=== PATIENT | female | born 1935 | race Hispanic/Latino ===

== ENCOUNTER 2021-10-13 16:29 | Inpatient (IN) | payer MEDICARE, OTHER ==
[2021-10-13] MEDS ORDERED: HYDROmorphone 0.5 MG/0.5 ML INJ IV PRN (16:46)
[2021-10-13] MEDS ORDERED: ACETAMINOPHEN 325 MG TAB PO PRN (16:46)
[2021-10-13] MEDS ORDERED: ALBUTEROL 2.5 MG/3 ML NEBU IH PRN (16:46)
[2021-10-13] MEDS ORDERED: ONDANSETRON 4 MG/2 ML INJ IV PRN (16:46)
[2021-10-13] MEDS ORDERED: HALOPERIDOL 5 MG TAB PO PRN (16:49)
[2021-10-13] MEDS ORDERED: diphenhydrAMINE 50 MG CAP PO PRN (16:49)
--- NOTE | 2021-10-13 16:50 | History and Physical Report ---
History of Present Illness Chief complaint: She is confused and she is falling down History of present illness: 85 YO Female with [place], HTN, DM, OA, Vascular Dementia, Cerebral Atherosclerosis admitted directly at the request of Dr. Calabrese. Patient is confused with diminished cognition is unable to provide detailed history. Patient history provided by daughter who was at patient bedside during exam and interview. As per patient daughter the patient experienced increased weakness confusion over the past 1 month with worsening symptoms over the same timeframe as well as recurrent syncopal episodes. Patient was seen and evaluated by her primary care physician today and was found to have a blood pressure of 187/125 mmHg complicated by confusion which is consistent with hypertensive urgency complicated by hypertensive encephalopathy. EMS was notified and upon arrival the patient was found to be in distress and subsequently transported to [facility] for further care and evaluation of the aforementioned symptoms. The patient was seen and evaluated upon arrival to her room. The patient was admitted to telemetry and treated with antihypertensive therapy due to increased risk of worsening symptoms and for medical stabilization. Patient has diminished cognition but has a positive gag reflex and is able to protect her airway at the time my evaluation. No reports of fever, chills, chest pain, palpitation productive cough, skin rash, recent contact, known exposure to COVID-19. No prior admission for review. All medication listed at time of admission has been reconciled. Past History Past Medical History: acute [place], diabetes, hypertension, other (See HPI) Past Surgical History: cholecystectomy, Other (Back surgery) Social history: . denies: smoking, alcohol abuse Family history: hypertension Medications and Allergies Allergies Allergy/AdvReac Type Severity Reaction Status Date / Time codeine Allergy Unknown Verified 10/13/21 17:38 Sulfa (Sulfonamide Allergy Unknown Verified 10/13/21 17:38 Antibiotics) Home Medications Medication Instructions Recorded Confirmed Last Taken Type Amoxicillin [Trimox] 500 mg PO BID 01/01/14 10/13/21 01/01/14 History Cetirizine HCl [Zyrtec] 10 mg PO DAILY 01/01/14 10/13/21 01/01/14 History Colesevelam [Welchol] 1,250 mg PO DAILY 01/01/14 10/13/21 01/01/14 History Fenofibric Acid (Choline) 135 mg PO QDAY 01/01/14 10/13/21 01/01/14 History [Trilipix] LORazepam [Ativan] 1 mg PO Q4H PRN 01/01/14 10/13/21 Unknown History Losartan/Hydrochlorothiazide 1 each PO QDAY 01/01/14 10/13/21 10/13/21 History [Hyzaar 100-12.5] Naproxen [Naprosyn] 500 mg PO BID 01/01/14 10/13/21 01/01/14 History Oxybutynin [Ditropan] 5 mg PO TID 01/01/14 10/13/21 01/01/14 History Pantoprazole [Protonix] 40 mg PO QDAY 01/01/14 10/13/21 01/01/14 History Pseudoephedrine [Sudafed] 30 mg PO DAILY 01/01/14 10/13/21 01/01/14 History Venlafaxine HCl [Effexor Xr] 150 mg PO DAILY 01/01/14 10/13/21 01/01/14 History amLODIPine [Norvasc] 5 mg PO DAILY 01/01/14 10/13/21 01/01/14 History clonazePAM [Klonopin] 1 mg PO BID PRN 01/01/14 10/13/21 01/01/14 History diphenhydrAMINE [Benadryl] 50 mg PO QHS PRN 01/01/14 10/13/21 Unknown History haloperidoL [Haldol] 5 mg PO Q4H PRN 01/01/14 10/13/21 Unknown History metFORMIN [Glucophage] 500 mg PO BID 01/01/14 10/13/21 01/01/14 History oxyCODONE [Roxicodone] 5 mg PO Q6H PRN 01/01/14 10/13/21 01/01/14 History ARIPiprazole [Abilify] 20 mg PO DAILY 10/13/21 10/13/21 10/12/21 History HYDROcodone/APAP 10-325 [[place] 10 mg PO TID 10/13/21 10/13/21 10/13/21 History 10-325 mg TAB] traMADoL [Ultram 50 MG tab] 50 mg PO TID PRN 10/13/21 10/13/21 10/12/21 History Active Meds: Active Medications Acetaminophen (Acetaminophen 325 Mg Tab) 650 mg PO Q4H PRN PRN Reason: Pain MILD(1-3)/Fever >100.5/MURILLO Albuterol (Albuterol 2.5 Mg/3 Ml Nebu) 2.5 mg IH Q4HRT PRN PRN Reason: Shortness Of Breath Hydromorphone HCl (Hydromorphone 0.5 Mg/0.5 Ml Inj) 0.5 mg IV Q13H PRN PRN Reason: Pain , Severe (7-10) Sodium Chloride (Nacl 0.9% 1000 Ml) 1,000 mls @ 75 mls/hr IV DIRECT ROLA Ondansetron HCl (Ondansetron 4 Mg/2 Ml Inj) 4 mg IV Q8H PRN PRN Reason: Nausea And Vomiting Oxycodone/Acetaminophen (Oxycodone /Acetaminophen 5-325mg Tab) 1 tab PO Q6H PRN PRN Reason: Pain, Moderate (4-6) Sodium Chloride (Sodium Chloride 0.9% 10 Ml Flush Syringe) 10 ml IV BID ROLA Sodium Chloride (Sodium Chloride 0.9% 10 Ml Flush Syringe) 10 ml IV PRN PRN PRN Reason: LINE FLUSH Review of Systems ROS unobtainable: due to mental status Assessment and Plan - Patient Problems (1) Hypertensive urgency, malignant Current Visit: No Status: Acute Plan to address problem: IV antihypertensive therapy as clinically indicated. Patient reinitiated on antihypertensive therapy at primary care physician's office prior to transfer. Continue medical management. Blood pressure check as per nursing care protocol. (2) Hypertensive encephalopathy syndrome Current Visit: No Status: Acute Plan to address problem: CT scan head, neuro check, seizure cautions, aspiration precautions, blood pressure control. (3) Syncope and collapse Current Visit: No Status: Acute Plan to address problem: Fall precautions, CT scan head, supportive care. Neuro check. (4) Diabetes Current Visit: No Status: Acute Plan to address problem: Consistent carbohydrate diet, Accu-Chek, insulin protocol, hypoglycemia protocol. (5) Osteoarthritis Current Visit: No Status: Acute Plan to address problem: Pain control, supportive care. (6) Vascular dementia Current Visit: No Status: Acute Qualifiers: Dementia behavioral disturbance: without behavioral disturbance Qualified Code(s): F01.50 - Vascular dementia without behavioral disturbance Plan to address problem: Verbal prompt, verbal redirection, benzodiazepine therapy as clinically indicated. (7) Cerebral atherosclerosis Current Visit: No Status: Acute Plan to address problem: Risk factor reduction, antiplatelet therapy as clinically indicated, supportive care. (8) DVT prophylaxis Current Visit: No Status: Acute Plan to address problem: SCDs bilateral lower extremities while in bed (9) Advance care planning Current Visit: No Status: Acute Plan to address problem: Disease education done, care plan discussed, diagnoses discussed, prognosis discussed, patient is full code. Patient daughter acknowledges understanding and agreement with care plan, +30 minutes. (10) Preventative health care Current Visit: No Status: Acute Plan to address problem: Patient and family counseled regarding fall precautions, home safety measures, outpatient follow-up with primary care physician for all age and risk factor appropriate screening test. +30 minutes.
[2021-10-13] MEDS ORDERED: SODIUM CHLORIDE 0.9% 1000 ML 1,000 ML IV SCH (17:00)
--- NOTE | 2021-10-13 18:35 | XRay Report ---
CHEST 1 VIEW 10/13/2021 6:22 PM INDICATION / CLINICAL INFORMATION: cough. COMPARISON: None available. FINDINGS: SUPPORT DEVICES: None. HEART / MEDIASTINUM: No significant abnormality. LUNGS / PLEURA: No significant pulmonary or pleural abnormality. No pneumothorax. ADDITIONAL FINDINGS: No significant additional findings. IMPRESSION: 1. No acute findings. Signer Name: Glenda Walker MD Signed: 10/13/2021 6:30 PM Workstation Name: [id number]
[2021-10-13] MEDS: oxyCODONE /ACETAMINOPHEN 5-325MG TAB PO PRN (19:49)
[2021-10-13 20:25] LABS: Basophils % (Auto) 0.3 % (0.0-1.8); Eosinophils # (Auto) 0.1 K/mm3 (0.0-0.4); Eosinophils % (Auto) 1.5 % (0.0-4.3); Hematocrit 36.1 % (30.3-42.9); Hemoglobin 12.2 gm/dl (10.1-14.3); Lymphocytes # (Auto) 1.5 K/mm3 (1.2-5.4); Lymphocytes % (Auto) 25.2 % (13.4-35.0); Mean Corpuscular HGB Conc 34 % (30-34); Mean Corpuscular Volume 97 fl (79-97); Monocytes # (Auto) 0.9 K/mm3 (0.0-0.8); Monocytes % (Auto) 14.7 % (0.0-7.3); Platelet Count 222 K/mm3 (140-440); Red Blood Count 3.72 M/mm3 (3.65-5.03); Red Cell Distribution Width 13.3 % (13.2-15.2)
[2021-10-13 20:27] LABS: Albumin 3.9 g/dL (3.9-5); Calcium 9.2 mg/dL (8.4-10.2)
[2021-10-13] MEDS: NAPROXEN 500 MG TAB PO SCH (22:39)
[2021-10-13] MEDS: clonazePAM 0.5 MG TAB PO PRN (22:39)
[2021-10-14] MEDS: oxyCODONE /ACETAMINOPHEN 5-325MG TAB PO PRN ×2 (00:15→18:08)
[2021-10-14 04:41] LABS: Calcium 8.9 mg/dL (8.4-10.2)
[2021-10-14] MEDS ORDERED: FENOFIBRIC ACID 135 MG PO SCH (10:00)
[2021-10-14] MEDS: ARIPiprazole 10 MG TAB PO SCH (11:01)
[2021-10-14] MEDS: COLESEVELAM 625 MG TAB PO SCH (11:01)
[2021-10-14] MEDS: VENLAFAXINE XR 75 MG CAP PO SCH (11:01)
[2021-10-14] MEDS: NAPROXEN 500 MG TAB PO SCH ×2 (11:01→21:19)
[2021-10-14] MEDS: CETIRIZINE 10 MG TAB PO SCH (11:02)
[2021-10-14] MEDS: LOSARTAN 50 MG TAB PO SCH (11:02)
[2021-10-14] MEDS: PANTOPRAZOLE 40 MG TAB PO SCH (11:02)
[2021-10-14] MEDS: hydroCHLOROthiazide 12.5 MG CAP PO SCH (11:02)
[2021-10-14] MEDS: amLODIPine 5 MG TAB PO SCH (11:02)
[2021-10-14] MEDS: FENOFIBRATE 145 MG TAB PO SCH (11:03)
--- NOTE | 2021-10-14 16:06 | Progress Note ---
Assessment and Plan Assessment and plan: #Hypertensive urgency-resolved #Hypertensive encephalopathy syndrome-resolved -continue home BP medications -CT of the head ordered -goal SBP <160 #Vascular dementia -Verbal prompting, verbal redirection #Syncope and collapse -Fall precautions, CT scan head, supportive care. Neuro checks. #Hx of Type II Diabetes -diet controlled -will continue consistent carbohydrate diet, Accu-Chek and hypoglycemia protocol #Osteoarthritis -Pain control, supportive care #Advanced care planning -Disease education done, care plan discussed, diagnoses discussed, prognosis discussed, patient is full code. Patient and daughter acknowledges understanding and agreement with care plan, +30 minutes. History Interval history: No acute events overnight. Patient unable to recollect events surrounding admission. Currently denies headache, chest pain and shortness of breath. She has no complaints at this time. Hospitalist Physical - Physical exam Narrative exam: GENERAL: Thin elderly woman. In no acute distress. HEENT: Normocephalic. Atraumatic. NECK: Supple. CHEST/LUNGS: CTAB on room air HEART/CARDIOVASCULAR: RRR. No murmur, rubs or gallops appreciated. ABDOMEN: +BS. NT/ND. SKIN: No rashes noted. NEURO: No focal motor deficit. Follows all commands. MUSCULOSKELETAL: No joint effusion EXTREMITIES: No cyanosis, clubbing or edema. PSYCH: Cooperative. - Constitutional Vitals: Temp Pulse Resp BP Pulse Ox 98.4 F 69 18 176/92 97 10/14/21 08:00 10/14/21 08:00 10/14/21 03:23 10/14/21 08:00 10/14/21 13:32 Results - Labs CBC & Chem 7: 10/13/21 18:53 10/14/21 03:55 Labs: Laboratory Last Values WBC 5.9 K/mm3 (4.5-11.0) 10/13/21 18:53 RBC 3.72 M/mm3 (3.65-5.03) 10/13/21 18:53 Hgb 12.2 gm/dl (10.1-14.3) 10/13/21 18:53 Hct 36.1 % (30.3-42.9) 10/13/21 18:53 MCV 97 fl (79-97) 10/13/21 18:53 MCH 33 pg (28-32) H 10/13/21 18:53 MCHC 34 % (30-34) 10/13/21 18:53 RDW 13.3 % (13.2-15.2) 10/13/21 18:53 Plt Count 222 K/mm3 (140-440) 10/13/21 18:53 Lymph % (Auto) 25.2 % (13.4-35.0) 10/13/21 18:53 Wirt % (Auto) 14.7 % (0.0-7.3) H 10/13/21 18:53 Eos % (Auto) 1.5 % (0.0-4.3) 10/13/21 18:53 Baso % (Auto) 0.3 % (0.0-1.8) 10/13/21 18:53 Lymph # (Auto) 1.5 K/mm3 (1.2-5.4) 10/13/21 18:53 Wirt # (Auto) 0.9 K/mm3 (0.0-0.8) H 10/13/21 18:53 Eos # (Auto) 0.1 K/mm3 (0.0-0.4) 10/13/21 18:53 Baso # (Auto) 0.0 K/mm3 (0.0-0.1) 10/13/21 18:53 Seg Neutrophils % 58.3 % (40.0-70.0) 10/13/21 18:53 Seg Neutrophils # 3.5 K/mm3 (1.8-7.7) 10/13/21 18:53 Sodium 135 mmol/L (137-145) L 10/14/21 03:55 Potassium 4.0 mmol/L (3.6-5.0) 10/14/21 03:55 Chloride 98.3 mmol/L (98-107) 10/14/21 03:55 Carbon Dioxide 28 mmol/L (22-30) 10/14/21 03:55 Anion Gap 13 mmol/L 10/14/21 03:55 BUN 25 mg/dL (7-17) H 10/14/21 03:55 Creatinine 1.1 mg/dL (0.6-1.2) 10/14/21 03:55 Estimated GFR 47 ml/min 10/14/21 03:55 BUN/Creatinine Ratio 23 % 10/14/21 03:55 Glucose 112 mg/dL (65-100) H 10/14/21 03:55 POC Glucose 97 mg/dL (70-105) 10/14/21 12:09 Calcium 8.9 mg/dL (8.4-10.2) 10/14/21 03:55 Total Bilirubin 0.30 mg/dL (0.1-1.2) 10/13/21 18:53 AST 18 units/L (5-40) 10/13/21 18:53 ALT 9 units/L (7-56) 10/13/21 18:53 Alkaline Phosphatase 63 units/L (35-129) 10/13/21 18:53 Total Protein 6.2 g/dL (6.3-8.2) L 10/13/21 18:53 Albumin 3.9 g/dL (3.9-5) 10/13/21 18:53 Albumin/Globulin Ratio 1.7 % 10/13/21 18:53 Slaughter/IV: Voiding Method Toilet Active Medications - Current Medications Current Medications: Generic Name Dose Route Start Last Admin Trade Name Freq PRN Reason Stop Dose Admin Acetaminophen 650 mg 10/13/21 16:46 Acetaminophen 325 Mg Tab PO Q4H PRN Pain MILD(1-3)/Fever >100.5/MURILLO Albuterol 2.5 mg 10/13/21 16:46 Albuterol 2.5 Mg/3 Ml Nebu IH Q4HRT PRN Shortness Of Breath Amlodipine Besylate 5 mg 10/14/21 10:00 10/14/21 11:02 Amlodipine 5 Mg Tab PO 5 mg DAILY ROLA Administration Aripiprazole 20 mg 10/14/21 10:00 10/14/21 11:01 Aripiprazole 10 Mg Tab PO 20 mg DAILY ROLA Administration Cetirizine HCl 10 mg 10/14/21 10:00 10/14/21 11:02 Cetirizine 10 Mg Tab PO 10 mg DAILY ROLA Administration Clonazepam 1 mg 10/13/21 16:49 10/13/21 22:39 Clonazepam 0.5 Mg Tab PO 1 mg BID PRN Administration Anxiety Colesevelam HCl 1,250 mg 10/14/21 10:00 10/14/21 11:01 Colesevelam 625 Mg Tab PO 1,250 mg DAILY ROLA Administration Diphenhydramine HCl 50 mg 10/13/21 16:49 Diphenhydramine 50 Mg Cap PO QHS PRN Sleep Fenofibrate 145 mg 10/14/21 10:00 10/14/21 11:03 Fenofibrate 145 Mg Tab PO 145 mg DAILY ROLA Administration Haloperidol 5 mg 10/13/21 16:49 Haloperidol 5 Mg Tab PO Q4H PRN Agitation Hydrochlorothiazide 12.5 mg 10/14/21 10:00 10/14/21 11:02 Hydrochlorothiazide 12.5 Mg Cap PO 12.5 mg QDAY ROLA Administration Hydromorphone HCl 0.5 mg 10/13/21 16:46 Hydromorphone 0.5 Mg/0.5 Ml Inj IV Q13H PRN Pain , Severe (7-10) Sodium Chloride 1,000 mls @ 75 mls/hr 10/13/21 17:00 Nacl 0.9% 1000 Ml IV DIRECT ROLA Losartan Potassium 100 mg 10/14/21 10:00 10/14/21 11:02 Losartan 50 Mg Tab PO 100 mg QDAY ROLA Administration Naproxen 500 mg 10/13/21 22:00 10/14/21 11:01 Naproxen 500 Mg Tab PO 500 mg BID ROLA Administration Ondansetron HCl 4 mg 10/13/21 16:46 Ondansetron 4 Mg/2 Ml Inj IV Q8H PRN Nausea And Vomiting Oxycodone/Acetaminophen 1 tab 10/13/21 16:46 10/13/21 19:49 Oxycodone /Acetaminophen 5-325mg Tab PO 1 tab Q6H PRN Administration Pain, Moderate (4-6) Pantoprazole Sodium 40 mg 10/14/21 10:00 10/14/21 11:02 Pantoprazole 40 Mg Tab PO 40 mg QDAY ROLA Administration Sodium Chloride 10 ml 10/13/21 22:00 10/14/21 11:03 Sodium Chloride 0.9% 10 Ml Flush Syringe IV 10 ml BID ROLA Administration Sodium Chloride 10 ml 10/13/21 16:46 Sodium Chloride 0.9% 10 Ml Flush Syringe IV PRN PRN LINE FLUSH Tramadol HCl 50 mg 10/13/21 20:21 Tramadol 50 Mg Tab PO TID PRN Pain, Moderate (4-6) Venlafaxine HCl 150 mg 10/14/21 10:00 07/07/22 11:01 Venlafaxine Xr 75 Mg Cap PO 150 mg DAILY ROLA Administration
[2021-10-14 20:29] LABS: Bilirubin,Urine Moderate (Negative); Color,Urine Colorless (Yellow)
[2021-10-14 20:30] LABS: Blood,Urine Negative (Negative)
[2021-10-14 20:31] LABS: PH,Urine 7.5 (5.0-7.0); Protein,Urine <15 mg/dL mg/dL (Negative)
[2021-10-14 20:45] LABS: WBC,Urine < 1.0 /HPF (0.0-6.0)
[2021-10-14] MEDS: clonazePAM 0.5 MG TAB PO PRN (21:20)
[2021-10-15] MEDS: NAPROXEN 500 MG TAB PO SCH ×3 (08:12→21:01)
[2021-10-15] MEDS: hydroCHLOROthiazide 12.5 MG CAP PO SCH ×2 (08:13→10:00)
[2021-10-15] MEDS: COLESEVELAM 625 MG TAB PO SCH ×2 (08:13→10:00)
[2021-10-15] MEDS: ARIPiprazole 10 MG TAB PO SCH ×2 (08:13→10:00)
[2021-10-15] MEDS: amLODIPine 5 MG TAB PO SCH ×2 (08:13→10:00)
[2021-10-15] MEDS: LOSARTAN 50 MG TAB PO SCH ×2 (08:14→10:00)
[2021-10-15] MEDS: PANTOPRAZOLE 40 MG TAB PO SCH ×2 (08:14→10:00)
[2021-10-15] MEDS: FENOFIBRATE 145 MG TAB PO SCH ×2 (08:14→10:00)
[2021-10-15] MEDS: VENLAFAXINE XR 75 MG CAP PO SCH ×2 (08:14→10:00)
[2021-10-15] MEDS: CETIRIZINE 10 MG TAB PO SCH ×2 (08:15→10:00)
--- NOTE | 2021-10-15 11:23 | Cat Scan Report ---
NONENHANCED CT SCAN OF THE HEAD: INDICATION / CLINICAL INFORMATION: 85 years Female; Syncope. TECHNIQUE: Routine CT head without contrast. All CT scans at this location are performed using CT dos e reduction for ALARA by means of automated exposure control. COMPARISON: CT scan of the head from 01/01/2014 not available for review FINDINGS: BRAIN / INTRACRANIAL CONTENTS: No acute hemorrhage, mass effect, midline shift, hydrocephalus, or acu te, large territorial infarct. No chronic infarct or focal atrophy. Normal brain volume and ventricul ar/sulcal size for age. Confluent periventricular and deep hemispheric low attenuation areas seen in both cerebral hemispheres, probably due to chronic small vessel disease. Cortical sulci are very well preserved for the age. Hyperostosis frontalis seen more prominent on the left side. CRANIOCERVICAL JUNCTION: No significant abnormality. ORBITS: No significant abnormality of visualized orbits. SINUSES / MASTOIDS: No significant abnormality of the visualized paranasal sinuses or mastoid air leann ls. ADDITIONAL FINDINGS: Degenerative changes in both condylar heads worse on the right side IMPRESSION: No acute focal parenchymal lesion in the brain Signer Name: Lee Deleon MD Signed: 10/15/2021 11:18 AM Workstation Name: [id number]
--- NOTE | 2021-10-15 12:35 | Discharge Summary ---
Providers - Providers Date of Admission: 10/13/21 17:27 Date of discharge: 10/18/21 Attending physician: RIKA ROTH MD 10/15/21 09:56 Physical Therapy Evaluation and Treat [CONS] Routine Comment: PT eval and treat Reason For Exam: debility Primary care physician: WILNER MITCHELL Hospitalization Reason for admission: syncope and encephalopathy Hospital course: Patient is 85-year-old female with history of [place], hypertension who was admitted for diminished cognition and increased falls per family. She was found to be in hypertensive emergency and was treated for hypertensive encephalopathy. CT of the head was negative for acute focal findings. The patient was evaluated by physical therapy and subacute rehab was recommended. Patient remained clinically stable and was discharged to [facility] once a bed was available. Disposition: 30 STILL A PATIENT Final Discharge Diagnosis (Prints w/discharge instructions): Hypertensive urgency. Hypertensive encephalopathy syndrome. Vascular dementia. Syncope and collapse. History of type 2 diabetes Time spent for discharge: 35 minutes Core Measure Documentation - Palliative Care Palliative Care/ Comfort Measures: Not Applicable - Core Measures Any of the following diagnoses?: none Exam - Physical Exam Narrative exam: GENERAL: Thin elderly woman. In no acute distress. HEENT: Normocephalic. Atraumatic. CHEST/LUNGS: CTAB on room air HEART/CARDIOVASCULAR: RRR. No murmur, rubs or gallops appreciated. ABDOMEN: +BS. NT/ND. NEURO: No focal motor deficit. Follows all commands. MUSCULOSKELETAL: No joint effusion EXTREMITIES: No cyanosis, clubbing or edema. PSYCH: Cooperative. - Constitutional Vitals: Temp Pulse Resp BP Pulse Ox 98.3 F 67 19 141/61 95 10/15/21 07:59 10/15/21 08:14 10/15/21 07:59 10/15/21 08:14 10/15/21 09:47 Plan Care Plan Goals: Please make sure to take all blood pressure medications as they are prescribed to you. On admission to the hospital you had really high blood pressures. Be sure to follow-up with your primary care provider to make sure that you do not need changes in doses of your medications. The CT of your head was negative for stroke and masses. Follow up with: WILNER MITCHELL MD [Primary Care Provider] - 7 Days Prescriptions: amLODIPine 5 mg PO DAILY 30 Days #30 tab Losartan/Hydrochlorothiazide [Losartan-Hctz 100-12.5 mg Tab] 1 each PO QDAY 30 Days #30 tab
[2021-10-15] MEDS: oxyCODONE /ACETAMINOPHEN 5-325MG TAB PO PRN (15:22)
--- NOTE | 2021-10-15 17:45 | Electrocardiograph Report ---
[facility] Test Date: 2021-10-14 Test Time: 08:25:05 Pat Name: JAD RENAE Department: Room: A459 1 Gender: F Bank Examiner: ALEXA : 1935 Requested By: CARROLL CASTILLO Order Number: [id number] Reading MD: Giovanni Joaquin Measurements Intervals King Rate: 59 P: 39 WI: 208 QRS: -17 QRSD: 105 T: 32 QT: 440 QTc: 436 Interpretive Statements Sinus bradycardia No previous ECG available for comparison Electronically Signed On 10-15-2021 17:45:48 EDT by Giovanni Joaquin
--- NOTE | 2021-10-16 07:59 | Progress Note ---
Assessment and Plan Assessment and plan: #Hypertensive urgency-resolved #Hypertensive encephalopathy syndrome-resolved -continue home BP medications -CT of the head negative for acute findings -goal SBP <160 #Vascular dementia -Verbal prompting, verbal redirection #Syncope and collapse -Fall precautions, supportive care. Neuro checks. #Hx of Type II Diabetes -diet controlled -will continue consistent carbohydrate diet, Accu-Chek and hypoglycemia protocol #Osteoarthritis -Pain control, supportive care #Advanced care planning -Disease education done, care plan discussed, diagnoses discussed, prognosis discussed, patient is full code. Patient and daughter acknowledges understanding and agreement with care plan, +30 minutes. #Discharge planning -Per PCP, daughter would like for patient to be placed in a NH, COVID test ordered, [facility] History Interval history: No acute events overnight. Patient eager to go home. Is able to verbalize her needs. She has no complaints at this time. Hospitalist Physical - Physical exam Narrative exam: GENERAL: Thin elderly woman. In no acute distress. HEENT: Normocephalic. Atraumatic. CHEST/LUNGS: CTAB on room air HEART/CARDIOVASCULAR: RRR. No murmur, rubs or gallops appreciated. ABDOMEN: +BS. NT/ND. NEURO: No focal motor deficit. Follows all commands. MUSCULOSKELETAL: No joint effusion EXTREMITIES: No cyanosis, clubbing or edema. PSYCH: Cooperative. - Constitutional Vitals: Temp Pulse Resp BP Pulse Ox 97.6 F 73 16 140/83 96 10/16/21 04:29 10/16/21 04:29 10/16/21 04:29 10/16/21 04:29 10/16/21 04:29 Results - Labs CBC & Chem 7: 10/13/21 18:53 10/14/21 03:55 Labs: Laboratory Last Values WBC 5.9 K/mm3 (4.5-11.0) 10/13/21 18:53 RBC 3.72 M/mm3 (3.65-5.03) 10/13/21 18:53 Hgb 12.2 gm/dl (10.1-14.3) 10/13/21 18:53 Hct 36.1 % (30.3-42.9) 10/13/21 18:53 MCV 97 fl (79-97) 10/13/21 18:53 MCH 33 pg (28-32) H 10/13/21 18:53 MCHC 34 % (30-34) 10/13/21 18:53 RDW 13.3 % (13.2-15.2) 10/13/21 18:53 Plt Count 222 K/mm3 (140-440) 10/13/21 18:53 Lymph % (Auto) 25.2 % (13.4-35.0) 10/13/21 18:53 [place] % (Auto) 14.7 % (0.0-7.3) H 10/13/21 18:53 Eos % (Auto) 1.5 % (0.0-4.3) 10/13/21 18:53 Baso % (Auto) 0.3 % (0.0-1.8) 10/13/21 18:53 Lymph # (Auto) 1.5 K/mm3 (1.2-5.4) 10/13/21 18:53 [place] # (Auto) 0.9 K/mm3 (0.0-0.8) H 10/13/21 18:53 Eos # (Auto) 0.1 K/mm3 (0.0-0.4) 10/13/21 18:53 Baso # (Auto) 0.0 K/mm3 (0.0-0.1) 10/13/21 18:53 Seg Neutrophils % 58.3 % (40.0-70.0) 10/13/21 18:53 Seg Neutrophils # 3.5 K/mm3 (1.8-7.7) 10/13/21 18:53 Sodium 135 mmol/L (137-145) L 10/14/21 03:55 Potassium 4.0 mmol/L (3.6-5.0) 10/14/21 03:55 Chloride 98.3 mmol/L (98-107) 10/14/21 03:55 Carbon Dioxide 28 mmol/L (22-30) 10/14/21 03:55 Anion Gap 13 mmol/L 10/14/21 03:55 BUN 25 mg/dL (7-17) H 10/14/21 03:55 Creatinine 1.1 mg/dL (0.6-1.2) 10/14/21 03:55 Estimated GFR 47 ml/min 10/14/21 03:55 BUN/Creatinine Ratio 23 % 10/14/21 03:55 Glucose 112 mg/dL (65-100) H 10/14/21 03:55 POC Glucose 97 mg/dL (70-105) 10/14/21 12:09 Calcium 8.9 mg/dL (8.4-10.2) 10/14/21 03:55 Total Bilirubin 0.30 mg/dL (0.1-1.2) 10/13/21 18:53 AST 18 units/L (5-40) 10/13/21 18:53 ALT 9 units/L (7-56) 10/13/21 18:53 Alkaline Phosphatase 63 units/L (35-129) 10/13/21 18:53 Total Protein 6.2 g/dL (6.3-8.2) L 10/13/21 18:53 Albumin 3.9 g/dL (3.9-5) 10/13/21 18:53 Albumin/Globulin Ratio 1.7 % 10/13/21 18:53 Urine Color Colorless (Yellow) 10/14/21 16:47 Urine Turbidity Clear (Clear) 10/14/21 16:47 Urine pH 7.5 (5.0-7.0) H 10/14/21 16:47 Ur Specific [place] 1.005 (1.003-1.030) 10/14/21 16:47 Urine Protein <15 mg/dl mg/dL (Negative) 10/14/21 16:47 Urine Glucose (UA) Negative mg/dL (Negative) 10/14/21 16:47 Urine Ketones Negative mg/dL (Negative) 10/14/21 16:47 Urine Blood Negative (Negative) 10/14/21 16:47 Urine Nitrite Negative (Negative) 10/14/21 16:47 Urine Bilirubin Moderate (Negative) 10/14/21 16:47 Urine Urobilinogen 0.0 mg/dL (<2.0) 10/14/21 16:47 Ur Leukocyte Esterase Small (Negative) 10/14/21 16:47 Urine WBC (Auto) < 1.0 /HPF (0.0-6.0) 10/14/21 16:47 Urine RBC (Auto) 1.0 /HPF (0.0-6.0) 10/14/21 16:47 U Epithel Cells (Auto) < 1.0 /HPF (0-13.0) 10/14/21 16:47 Slaughter/IV: Voiding Method Toilet Active Medications - Current Medications Current Medications: Generic Name Dose Route Start Last Admin Trade Name Freq PRN Reason Stop Dose Admin Acetaminophen 650 mg 10/13/21 16:46 Acetaminophen 325 Mg Tab PO Q4H PRN Pain MILD(1-3)/Fever >100.5/MURILLO Albuterol 2.5 mg 10/13/21 16:46 Albuterol 2.5 Mg/3 Ml Nebu IH Q4HRT PRN Shortness Of Breath Amlodipine Besylate 5 mg 10/14/21 10:00 10/15/21 10:00 Amlodipine 5 Mg Tab PO Not Given DAILY ROLA Aripiprazole 20 mg 10/14/21 10:00 10/15/21 10:00 Aripiprazole 10 Mg Tab PO Not Given DAILY ROLA Cetirizine HCl 10 mg 10/14/21 10:00 10/15/21 10:00 Cetirizine 10 Mg Tab PO Not Given DAILY ROLA Clonazepam 1 mg 10/13/21 16:49 10/14/21 21:20 Clonazepam 0.5 Mg Tab PO 1 mg BID PRN Administration Anxiety Colesevelam HCl 1,250 mg 10/14/21 10:00 10/15/21 10:00 Colesevelam 625 Mg Tab PO Not Given DAILY ROLA Diphenhydramine HCl 50 mg 10/13/21 16:49 10/14/21 23:50 Diphenhydramine 50 Mg Cap PO 50 mg QHS PRN Administration Sleep Fenofibrate 145 mg 10/14/21 10:00 10/15/21 10:00 Fenofibrate 145 Mg Tab PO Not Given DAILY ROLA Haloperidol 5 mg 10/13/21 16:49 Haloperidol 5 Mg Tab PO Q4H PRN Agitation Hydrochlorothiazide 12.5 mg 10/14/21 10:00 10/15/21 10:00 Hydrochlorothiazide 12.5 Mg Cap PO Not Given QDAY ROLA Hydromorphone HCl 0.5 mg 10/13/21 16:46 Hydromorphone 0.5 Mg/0.5 Ml Inj IV Q13H PRN Pain , Severe (7-10) Sodium Chloride 1,000 mls @ 75 mls/hr 10/13/21 17:00 Nacl 0.9% 1000 Ml IV DIRECT ROLA Losartan Potassium 100 mg 10/14/21 10:00 10/15/21 10:00 Losartan 50 Mg Tab PO Not Given QDAY ROLA Naproxen 500 mg 10/13/21 22:00 10/15/21 21:01 Naproxen 500 Mg Tab PO 500 mg BID ROLA Administration Ondansetron HCl 4 mg 10/13/21 16:46 Ondansetron 4 Mg/2 Ml Inj IV Q8H PRN Nausea And Vomiting Oxycodone/Acetaminophen 1 tab 10/13/21 16:46 10/15/21 15:22 Oxycodone /Acetaminophen 5-325mg Tab PO 1 tab Q6H PRN Administration Pain, Moderate (4-6) Pantoprazole Sodium 40 mg 10/14/21 10:00 10/15/21 10:00 Pantoprazole 40 Mg Tab PO Not Given QDAY ROLA Sodium Chloride 10 ml 10/13/21 22:00 10/15/21 21:02 Sodium Chloride 0.9% 10 Ml Flush Syringe IV 10 ml BID ROLA Administration Sodium Chloride 10 ml 10/13/21 16:46 Sodium Chloride 0.9% 10 Ml Flush Syringe IV PRN PRN LINE FLUSH Tramadol HCl 50 mg 10/13/21 20:21 Tramadol 50 Mg Tab PO TID PRN Pain, Moderate (4-6) Venlafaxine HCl 150 mg 10/14/21 10:00 10/15/21 10:00 Venlafaxine Xr 75 Mg Cap PO Not Given DAILY ROLA
[2021-10-16] MEDS: PANTOPRAZOLE 40 MG TAB PO SCH (10:30)
[2021-10-16] MEDS: ARIPiprazole 10 MG TAB PO SCH (10:30)
[2021-10-16] MEDS: hydroCHLOROthiazide 12.5 MG CAP PO SCH (10:30)
[2021-10-16] MEDS: NAPROXEN 500 MG TAB PO SCH ×2 (10:30→23:25)
[2021-10-16] MEDS: COLESEVELAM 625 MG TAB PO SCH (10:30)
[2021-10-16] MEDS: FENOFIBRATE 145 MG TAB PO SCH (10:30)
[2021-10-16] MEDS: LOSARTAN 50 MG TAB PO SCH (10:30)
[2021-10-16] MEDS: amLODIPine 5 MG TAB PO SCH (10:30)
[2021-10-16] MEDS: CETIRIZINE 10 MG TAB PO SCH (10:30)
[2021-10-16] MEDS: VENLAFAXINE XR 75 MG CAP PO SCH (10:30)
--- NOTE | 2021-10-16 13:58 | Progress Note ---
Assessment and Plan Assessment and plan: #Hypertensive urgency-resolved #Hypertensive encephalopathy syndrome-resolved -continue home BP medications -CT of the head negative for acute findings -goal SBP <160 #Vascular dementia -Verbal prompting, verbal redirection #Syncope and collapse -Fall precautions, supportive care. Neuro checks. #Hx of Type II Diabetes -diet controlled -will continue consistent carbohydrate diet, Accu-Chek and hypoglycemia protocol #Osteoarthritis -Pain control, supportive care #Advanced care planning -Disease education done, care plan discussed, diagnoses discussed, prognosis discussed, patient is full code. Patient and daughter acknowledges understanding and agreement with care plan, +30 minutes. #Discharge planning -Per PCP, daughter would like for patient to be placed in a NH, COVID test ordered, awaiting transfer to [facility], patient accepted. History Interval history: No acute events overnight. Patient has no complaints at this time. Hospitalist Physical - Physical exam Narrative exam: GENERAL: Thin elderly woman. In no acute distress. HEENT: Normocephalic. Atraumatic. CHEST/LUNGS: CTAB on room air HEART/CARDIOVASCULAR: RRR. No murmur, rubs or gallops appreciated. ABDOMEN: +BS. NT/ND. NEURO: No focal motor deficit. Follows all commands. MUSCULOSKELETAL: No joint effusion EXTREMITIES: No cyanosis, clubbing or edema. PSYCH: Cooperative. - Constitutional Vitals: Temp Pulse Resp BP Pulse Ox 97.9 F 66 16 171/82 94 10/16/21 11:01 10/16/21 11:01 10/16/21 11:01 10/16/21 11:01 10/16/21 11:01 Results - Labs CBC & Chem 7: 10/13/21 18:53 10/14/21 03:55 Labs: Laboratory Last Values WBC 5.9 K/mm3 (4.5-11.0) 10/13/21 18:53 RBC 3.72 M/mm3 (3.65-5.03) 10/13/21 18:53 Hgb 12.2 gm/dl (10.1-14.3) 10/13/21 18:53 Hct 36.1 % (30.3-42.9) 10/13/21 18:53 MCV 97 fl (79-97) 10/13/21 18:53 MCH 33 pg (28-32) H 10/13/21 18:53 MCHC 34 % (30-34) 10/13/21 18:53 RDW 13.3 % (13.2-15.2) 10/13/21 18:53 Plt Count 222 K/mm3 (140-440) 10/13/21 18:53 Lymph % (Auto) 25.2 % (13.4-35.0) 10/13/21 18:53 [place] % (Auto) 14.7 % (0.0-7.3) H 10/13/21 18:53 Eos % (Auto) 1.5 % (0.0-4.3) 10/13/21 18:53 Baso % (Auto) 0.3 % (0.0-1.8) 10/13/21 18:53 Lymph # (Auto) 1.5 K/mm3 (1.2-5.4) 10/13/21 18:53 [place] # (Auto) 0.9 K/mm3 (0.0-0.8) H 10/13/21 18:53 Eos # (Auto) 0.1 K/mm3 (0.0-0.4) 10/13/21 18:53 Baso # (Auto) 0.0 K/mm3 (0.0-0.1) 10/13/21 18:53 Seg Neutrophils % 58.3 % (40.0-70.0) 10/13/21 18:53 Seg Neutrophils # 3.5 K/mm3 (1.8-7.7) 10/13/21 18:53 Sodium 135 mmol/L (137-145) L 10/14/21 03:55 Potassium 4.0 mmol/L (3.6-5.0) 10/14/21 03:55 Chloride 98.3 mmol/L (98-107) 10/14/21 03:55 Carbon Dioxide 28 mmol/L (22-30) 10/14/21 03:55 Anion Gap 13 mmol/L 10/14/21 03:55 BUN 25 mg/dL (7-17) H 10/14/21 03:55 Creatinine 1.1 mg/dL (0.6-1.2) 10/14/21 03:55 Estimated GFR 47 ml/min 10/14/21 03:55 BUN/Creatinine Ratio 23 % 10/14/21 03:55 Glucose 112 mg/dL (65-100) H 10/14/21 03:55 POC Glucose 97 mg/dL (70-105) 10/14/21 12:09 Calcium 8.9 mg/dL (8.4-10.2) 10/14/21 03:55 Total Bilirubin 0.30 mg/dL (0.1-1.2) 10/13/21 18:53 AST 18 units/L (5-40) 10/13/21 18:53 ALT 9 units/L (7-56) 10/13/21 18:53 Alkaline Phosphatase 63 units/L (35-129) 10/13/21 18:53 Total Protein 6.2 g/dL (6.3-8.2) L 10/13/21 18:53 Albumin 3.9 g/dL (3.9-5) 10/13/21 18:53 Albumin/Globulin Ratio 1.7 % 10/13/21 18:53 Urine Color Colorless (Yellow) 10/14/21 16:47 Urine Turbidity Clear (Clear) 10/14/21 16:47 Urine pH 7.5 (5.0-7.0) H 10/14/21 16:47 Ur Specific [place] 1.005 (1.003-1.030) 10/14/21 16:47 Urine Protein <15 mg/dl mg/dL (Negative) 10/14/21 16:47 Urine Glucose (UA) Negative mg/dL (Negative) 10/14/21 16:47 Urine Ketones Negative mg/dL (Negative) 10/14/21 16:47 Urine Blood Negative (Negative) 10/14/21 16:47 Urine Nitrite Negative (Negative) 10/14/21 16:47 Urine Bilirubin Moderate (Negative) 10/14/21 16:47 Urine Urobilinogen 0.0 mg/dL (<2.0) 10/14/21 16:47 Ur Leukocyte Esterase Small (Negative) 10/14/21 16:47 Urine WBC (Auto) < 1.0 /HPF (0.0-6.0) 10/14/21 16:47 Urine RBC (Auto) 1.0 /HPF (0.0-6.0) 10/14/21 16:47 U Epithel Cells (Auto) < 1.0 /HPF (0-13.0) 10/14/21 16:47 Slaughter/IV: Voiding Method Toilet Active Medications - Current Medications Current Medications: Generic Name Dose Route Start Last Admin Trade Name Freq PRN Reason Stop Dose Admin Acetaminophen 650 mg 10/13/21 16:46 Acetaminophen 325 Mg Tab PO Q4H PRN Pain MILD(1-3)/Fever >100.5/MURILLO Albuterol 2.5 mg 10/13/21 16:46 Albuterol 2.5 Mg/3 Ml Nebu IH Q4HRT PRN Shortness Of Breath Amlodipine Besylate 5 mg 10/14/21 10:00 10/16/21 10:30 Amlodipine 5 Mg Tab PO 5 mg DAILY ROLA Administration Aripiprazole 20 mg 10/14/21 10:00 10/16/21 10:30 Aripiprazole 10 Mg Tab PO 20 mg DAILY ROLA Administration Cetirizine HCl 10 mg 10/14/21 10:00 10/16/21 10:30 Cetirizine 10 Mg Tab PO 10 mg DAILY ROLA Administration Clonazepam 1 mg 10/13/21 16:49 10/14/21 21:20 Clonazepam 0.5 Mg Tab PO 1 mg BID PRN Administration Anxiety Colesevelam HCl 1,250 mg 10/14/21 10:00 10/16/21 10:30 Colesevelam 625 Mg Tab PO 1,250 mg DAILY ROLA Administration Diphenhydramine HCl 50 mg 10/13/21 16:49 10/14/21 23:50 Diphenhydramine 50 Mg Cap PO 50 mg QHS PRN Administration Sleep Fenofibrate 145 mg 10/14/21 10:00 10/16/21 10:30 Fenofibrate 145 Mg Tab PO 145 mg DAILY ROLA Administration Haloperidol 5 mg 10/13/21 16:49 Haloperidol 5 Mg Tab PO Q4H PRN Agitation Hydrochlorothiazide 12.5 mg 10/14/21 10:00 10/16/21 10:30 Hydrochlorothiazide 12.5 Mg Cap PO 12.5 mg QDAY ROLA Administration Hydromorphone HCl 0.5 mg 10/13/21 16:46 Hydromorphone 0.5 Mg/0.5 Ml Inj IV Q13H PRN Pain , Severe (7-10) Sodium Chloride 1,000 mls @ 75 mls/hr 10/13/21 17:00 Nacl 0.9% 1000 Ml IV DIRECT ROLA Losartan Potassium 100 mg 10/14/21 10:00 10/16/21 10:30 Losartan 50 Mg Tab PO 100 mg QDAY ROLA Administration Naproxen 500 mg 10/13/21 22:00 10/16/21 10:30 Naproxen 500 Mg Tab PO 500 mg BID ROLA Administration Ondansetron HCl 4 mg 10/13/21 16:46 Ondansetron 4 Mg/2 Ml Inj IV Q8H PRN Nausea And Vomiting Oxycodone/Acetaminophen 1 tab 10/13/21 16:46 10/15/21 15:22 Oxycodone /Acetaminophen 5-325mg Tab PO 1 tab Q6H PRN Administration Pain, Moderate (4-6) Pantoprazole Sodium 40 mg 10/14/21 10:00 10/16/21 10:30 Pantoprazole 40 Mg Tab PO 40 mg QDAY ROLA Administration Sodium Chloride 10 ml 10/13/21 22:00 10/16/21 10:30 Sodium Chloride 0.9% 10 Ml Flush Syringe IV 10 ml BID ROLA Administration Sodium Chloride 10 ml 10/13/21 16:46 Sodium Chloride 0.9% 10 Ml Flush Syringe IV PRN PRN LINE FLUSH Tramadol HCl 50 mg 10/13/21 20:21 Tramadol 50 Mg Tab PO TID PRN Pain, Moderate (4-6) Venlafaxine HCl 150 mg 10/14/21 10:00 10/16/21 10:30 Venlafaxine Xr 75 Mg Cap PO 150 mg DAILY ROLA Administration
--- NOTE | 2021-10-17 07:55 | Progress Note ---
Assessment and Plan Assessment and plan: #Hypertensive urgency-resolved #Hypertensive encephalopathy syndrome-resolved -continue home BP medications -CT of the head negative for acute findings -goal SBP <160 #Vascular dementia -Verbal prompting, verbal redirection #Syncope and collapse -Fall precautions, supportive care. Neuro checks. #Hx of Type II Diabetes -diet controlled -will continue consistent carbohydrate diet, Accu-Chek and hypoglycemia protocol #Osteoarthritis -Pain control, supportive care #Advanced care planning -Disease education done, care plan discussed, diagnoses discussed, prognosis discussed, patient is full code. Patient and daughter acknowledges understanding and agreement with care plan, +30 minutes. #Discharge planning -Per PCP, daughter would like for patient to be placed in a NH, [facility] test ordered[facility] History Interval history: No acute events overnight. Patient was assisted to the bathroom by nursing. She has no complaints at this time. Hospitalist Physical - Physical exam Narrative exam: GENERAL: Thin elderly woman. In no acute distress. HEENT: Normocephalic. Atraumatic. CHEST/LUNGS: CTAB on room air HEART/CARDIOVASCULAR: RRR. No murmur, rubs or gallops appreciated. ABDOMEN: +BS. NT/ND. NEURO: No focal motor deficit. Follows all commands. MUSCULOSKELETAL: No joint effusion EXTREMITIES: No cyanosis, clubbing or edema. PSYCH: Cooperative. - Constitutional Vitals: Temp Pulse Resp BP Pulse Ox 97.8 F 85 17 128/75 97 10/17/21 03:59 10/17/21 03:59 10/17/21 03:59 10/17/21 03:59 10/17/21 03:59 Results - Labs CBC & Chem 7: 10/13/21 18:53 10/14/21 03:55 Labs: Laboratory Last Values WBC 5.9 K/mm3 (4.5-11.0) 10/13/21 18:53 RBC 3.72 M/mm3 (3.65-5.03) 10/13/21 18:53 Hgb 12.2 gm/dl (10.1-14.3) 10/13/21 18:53 Hct 36.1 % (30.3-42.9) 10/13/21 18:53 MCV 97 fl (79-97) 10/13/21 18:53 MCH 33 pg (28-32) H 10/13/21 18:53 MCHC 34 % (30-34) 10/13/21 18:53 RDW 13.3 % (13.2-15.2) 10/13/21 18:53 Plt Count 222 K/mm3 (140-440) 10/13/21 18:53 Lymph % (Auto) 25.2 % (13.4-35.0) 10/13/21 18:53 [place] % (Auto) 14.7 % (0.0-7.3) H 10/13/21 18:53 Eos % (Auto) 1.5 % (0.0-4.3) 10/13/21 18:53 Baso % (Auto) 0.3 % (0.0-1.8) 10/13/21 18:53 Lymph # (Auto) 1.5 K/mm3 (1.2-5.4) 10/13/21 18:53 [place] # (Auto) 0.9 K/mm3 (0.0-0.8) H 10/13/21 18:53 Eos # (Auto) 0.1 K/mm3 (0.0-0.4) 10/13/21 18:53 Baso # (Auto) 0.0 K/mm3 (0.0-0.1) 10/13/21 18:53 Seg Neutrophils % 58.3 % (40.0-70.0) 10/13/21 18:53 Seg Neutrophils # 3.5 K/mm3 (1.8-7.7) 10/13/21 18:53 Sodium 135 mmol/L (137-145) L 10/14/21 03:55 Potassium 4.0 mmol/L (3.6-5.0) 10/14/21 03:55 Chloride 98.3 mmol/L (98-107) 10/14/21 03:55 Carbon Dioxide 28 mmol/L (22-30) 10/14/21 03:55 Anion Gap 13 mmol/L 10/14/21 03:55 BUN 25 mg/dL (7-17) H 10/14/21 03:55 Creatinine 1.1 mg/dL (0.6-1.2) 10/14/21 03:55 Estimated GFR 47 ml/min 10/14/21 03:55 BUN/Creatinine Ratio 23 % 10/14/21 03:55 Glucose 112 mg/dL (65-100) H 10/14/21 03:55 POC Glucose 97 mg/dL (70-105) 10/14/21 12:09 Calcium 8.9 mg/dL (8.4-10.2) 10/14/21 03:55 Total Bilirubin 0.30 mg/dL (0.1-1.2) 10/13/21 18:53 AST 18 units/L (5-40) 10/13/21 18:53 ALT 9 units/L (7-56) 10/13/21 18:53 Alkaline Phosphatase 63 units/L (35-129) 10/13/21 18:53 Total Protein 6.2 g/dL (6.3-8.2) L 10/13/21 18:53 Albumin 3.9 g/dL (3.9-5) 10/13/21 18:53 Albumin/Globulin Ratio 1.7 % 10/13/21 18:53 Urine Color Colorless (Yellow) 10/14/21 16:47 Urine Turbidity Clear (Clear) 10/14/21 16:47 Urine pH 7.5 (5.0-7.0) H 10/14/21 16:47 Ur Specific [place] 1.005 (1.003-1.030) 10/14/21 16:47 Urine Protein <15 mg/dl mg/dL (Negative) 10/14/21 16:47 Urine Glucose (UA) Negative mg/dL (Negative) 10/14/21 16:47 Urine Ketones Negative mg/dL (Negative) 10/14/21 16:47 Urine Blood Negative (Negative) 10/14/21 16:47 Urine Nitrite Negative (Negative) 10/14/21 16:47 Urine Bilirubin Moderate (Negative) 10/14/21 16:47 Urine Urobilinogen 0.0 mg/dL (<2.0) 10/14/21 16:47 Ur Leukocyte Esterase Small (Negative) 10/14/21 16:47 Urine WBC (Auto) < 1.0 /HPF (0.0-6.0) 10/14/21 16:47 Urine RBC (Auto) 1.0 /HPF (0.0-6.0) 10/14/21 16:47 U Epithel Cells (Auto) < 1.0 /HPF (0-13.0) 10/14/21 16:47 Slaughter/IV: Voiding Method Toilet Active Medications - Current Medications Current Medications: Generic Name Dose Route Start Last Admin Trade Name Freq PRN Reason Stop Dose Admin Acetaminophen 650 mg 10/13/21 16:46 Acetaminophen 325 Mg Tab PO Q4H PRN Pain MILD(1-3)/Fever >100.5/MURILLO Albuterol 2.5 mg 10/13/21 16:46 Albuterol 2.5 Mg/3 Ml Nebu IH Q4HRT PRN Shortness Of Breath Amlodipine Besylate 5 mg 10/14/21 10:00 10/16/21 10:30 Amlodipine 5 Mg Tab PO 5 mg DAILY ROLA Administration Aripiprazole 20 mg 10/14/21 10:00 10/16/21 10:30 Aripiprazole 10 Mg Tab PO 20 mg DAILY ROLA Administration Cetirizine HCl 10 mg 10/14/21 10:00 10/16/21 10:30 Cetirizine 10 Mg Tab PO 10 mg DAILY ROLA Administration Clonazepam 1 mg 10/13/21 16:49 10/14/21 21:20 Clonazepam 0.5 Mg Tab PO 1 mg BID PRN Administration Anxiety Colesevelam HCl 1,250 mg 10/14/21 10:00 10/16/21 10:30 Colesevelam 625 Mg Tab PO 1,250 mg DAILY ROLA Administration Diphenhydramine HCl 50 mg 10/13/21 16:49 10/14/21 23:50 Diphenhydramine 50 Mg Cap PO 50 mg QHS PRN Administration Sleep Fenofibrate 145 mg 10/14/21 10:00 10/16/21 10:30 Fenofibrate 145 Mg Tab PO 145 mg DAILY ROLA Administration Haloperidol 5 mg 10/13/21 16:49 Haloperidol 5 Mg Tab PO Q4H PRN Agitation Hydrochlorothiazide 12.5 mg 10/14/21 10:00 10/16/21 10:30 Hydrochlorothiazide 12.5 Mg Cap PO 12.5 mg QDAY ROLA Administration Hydromorphone HCl 0.5 mg 10/13/21 16:46 Hydromorphone 0.5 Mg/0.5 Ml Inj IV Q13H PRN Pain , Severe (7-10) Losartan Potassium 100 mg 10/14/21 10:00 10/16/21 10:30 Losartan 50 Mg Tab PO 100 mg QDAY ROLA Administration Naproxen 500 mg 10/13/21 22:00 10/16/21 23:25 Naproxen 500 Mg Tab PO 500 mg BID ROLA Administration Ondansetron HCl 4 mg 10/13/21 16:46 Ondansetron 4 Mg/2 Ml Inj IV Q8H PRN Nausea And Vomiting Oxycodone/Acetaminophen 1 tab 10/13/21 16:46 10/15/21 15:22 Oxycodone /Acetaminophen 5-325mg Tab PO 1 tab Q6H PRN Administration Pain, Moderate (4-6) Pantoprazole Sodium 40 mg 10/14/21 10:00 10/16/21 10:30 Pantoprazole 40 Mg Tab PO 40 mg QDAY ROLA Administration Sodium Chloride 10 ml 10/13/21 22:00 10/16/21 23:26 Sodium Chloride 0.9% 10 Ml Flush Syringe IV 10 ml BID ROLA Administration Sodium Chloride 10 ml 10/13/21 16:46 Sodium Chloride 0.9% 10 Ml Flush Syringe IV PRN PRN LINE FLUSH Tramadol HCl 50 mg 10/13/21 20:21 Tramadol 50 Mg Tab PO TID PRN Pain, Moderate (4-6) Venlafaxine HCl 150 mg 10/14/21 10:00 10/16/21 10:30 Venlafaxine Xr 75 Mg Cap PO 150 mg DAILY ROLA Administration
[2021-10-17] MEDS: COLESEVELAM 625 MG TAB PO SCH (09:31)
[2021-10-17] MEDS: ARIPiprazole 10 MG TAB PO SCH (09:32)
[2021-10-17] MEDS: VENLAFAXINE XR 75 MG CAP PO SCH (09:32)
[2021-10-17] MEDS: hydroCHLOROthiazide 12.5 MG CAP PO SCH (09:32)
[2021-10-17] MEDS: LOSARTAN 50 MG TAB PO SCH (09:32)
[2021-10-17] MEDS: CETIRIZINE 10 MG TAB PO SCH (09:32)
[2021-10-17] MEDS: NAPROXEN 500 MG TAB PO SCH ×2 (09:32→21:10)
[2021-10-17] MEDS: PANTOPRAZOLE 40 MG TAB PO SCH (09:32)
[2021-10-17] MEDS: FENOFIBRATE 145 MG TAB PO SCH (09:32)
[2021-10-17] MEDS: amLODIPine 5 MG TAB PO SCH (09:32)
[2021-10-17] MEDS: traMADol 50 MG TAB PO PRN ×2 (14:47→23:14)
[2021-10-18 09:55] VITALS: BP 143/72
[2021-10-18] MEDS: NAPROXEN 500 MG TAB PO SCH (09:56)
[2021-10-18] MEDS: hydroCHLOROthiazide 12.5 MG CAP PO SCH (09:57)
[2021-10-18] MEDS: ARIPiprazole 10 MG TAB PO SCH (09:57)
[2021-10-18] MEDS: COLESEVELAM 625 MG TAB PO SCH (09:57)
[2021-10-18] MEDS: LOSARTAN 50 MG TAB PO SCH (09:57)
[2021-10-18] MEDS: PANTOPRAZOLE 40 MG TAB PO SCH (09:57)
[2021-10-18] MEDS: FENOFIBRATE 145 MG TAB PO SCH (09:58)
[2021-10-18] MEDS: VENLAFAXINE XR 75 MG CAP PO SCH (09:58)
[2021-10-18] MEDS: amLODIPine 5 MG TAB PO SCH (09:58)
[2021-10-18] MEDS: CETIRIZINE 10 MG TAB PO SCH (09:59)
[2021-10-18] MEDS: traMADol 50 MG TAB PO PRN (18:25)
== END 2021-10-18 18:30 | DRG 78 ==
LOC: 4A 16:29 → UNDOADMIN 16:29 → 4A 17:27
PROVIDERS: ADMIT Internal Medicine; ATTEND Student in an Organized Health Care Education/Training Program
DX: I67.4 Hypertensive encephalopathy (principal); I16.1 Hypertensive emergency; F01.50 Vascular dementia, unspecified severity, without behavioral disturbance, psychotic disturbance, mood disturbance, and anxiety; I67.2 Cerebral atherosclerosis; M19.90 Unspecified osteoarthritis, unspecified site; Z20.822 Contact with and (suspected) exposure to COVID-19; I25.2 Old myocardial infarction; I10 Essential (primary) hypertension; E11.9 Type 2 diabetes mellitus without complications; Z82.49 Family history of ischemic heart disease and other diseases of the circulatory system; Z79.899 Other long term (current) drug therapy; Z79.84 Long term (current) use of oral hypoglycemic drugs
CPT/HCPCS: 36415; 70450; 71045; 80048; 80053; 81001; 82962; 85025; 93005; 94760; G0378; U0003

== ENCOUNTER 2021-10-13 17:04 | Emergency (ER) | payer MEDICARE, OTHER ==
--- NOTE | 2021-10-13 17:13 | Event Note ---
ED Screening Note ED Screening Note: HERE FOR DIRECT ADMIT DR CASTILLO TO ADMIT This initial assessment/diagnostic orders/clinical plan/treatment(s) is/are subject to change based on patients health status, clinical progression and re- assessment by fellow clinical providers in the ED. Further treatment and workup at subsequent clinical providers discretion. Patient/guardian urged not to elope from the ED as their condition may be serious if not clinically assessed and managed. Initial orders include: DR ANNA TRAN
== END 2021-10-14 19:16 | disposition left against medical advice (07) ==
LOC: ED 17:04
DX: R52 Pain, unspecified (principal); Z53.21 Procedure and treatment not carried out due to patient leaving prior to being seen by health care provider